=== PATIENT | female | born 1990 | race Caucasian/White ===

== ENCOUNTER → 2020-10-02 15:51 | Outpatient (BNVA) | payer OTHER, SELFPAY | PROVIDERS: Family Provider Internal Medicine; PCP Internal Medicine | DX: Z20.828 Contact with and (suspected) exposure to other viral communicable diseases (principal) | CPT/HCPCS: 87635 ==

== ENCOUNTER → 2020-10-11 17:25 | Outpatient (BNVA) | payer OTHER, SELFPAY | PROVIDERS: Family Provider Internal Medicine; PCP Internal Medicine; Visit Provider Family Medicine | DX: Z20.828 Contact with and (suspected) exposure to other viral communicable diseases (principal) | CPT/HCPCS: 87635 ==

== ENCOUNTER 2021-02-07 09:40 | Outpatient (CLI) | payer OTHER, SELFPAY ==
--- NOTE | 2021-02-07 09:45 | NM_ITS ---
WS: [id number] NUCLEAR MEDICINE HIDA SCAN WITH GALLBLADDER EJECTION FRACTION HISTORY: RUQ ABDOMINAL PAIN COMPARISON: None available. TECHNIQUE: The patient was intravenously injected with 7.7 mCi of TC99m Mebrofenin. Immediate imaging over the right upper quadrant was followed by 5 minute image and additional images for a total of 60 minutes. Normal uptake of radiotracer throughout the liver. Activity identified in the gallbladder at 15 minutes and well distended by 60 minutes. Activity in the proximal small bowel was seen by 30 minutes. Good washout of the radiotracer from the liver by 60 minutes. The patient then drank 8 ounces of Ensure Plus. Ejection fraction at 60 minutes was 83%. Normal GB ej ection fraction is 35-75%. Post fatty meal symptoms: None. NM/NM hepatobiliary w phar* [id number] IMPRESSION: 1. Normal HIDA scan. 2. Normal gallbladder ejection fraction.
== END 2021-02-07 09:41 | disposition home or self-care (01) ==
LOC: RAD 09:42
PROVIDERS: PCP Internal Medicine; Visit Provider Internal Medicine
DX: R10.11 Right upper quadrant pain (principal)
CPT/HCPCS: 78227; A9537

== ENCOUNTER → 2021-02-13 08:03 | Outpatient (BNVA) | payer OTHER, SELFPAY | PROVIDERS: PCP Internal Medicine; Visit Provider Surgery | DX: K80.20 Calculus of gallbladder without cholecystitis without obstruction (principal); Z11.52 Encounter for screening for COVID-19 | CPT/HCPCS: 87635 ==

== ENCOUNTER 2021-02-19 05:57 | Day surgery (SDC) | payer OTHER, SELFPAY ==
[2021-02-16 14:23] VITALS: BMI 38.2
[2021-02-19] VITALS (12 sets, daily range): BP systolic 130–161; BP diastolic 71–113; PULSE 70–92; RESP 17–20; TEMP 36.3–36.6; O2SAT 91–98
--- NOTE | 2021-02-19 06:29 | ANES.PREANE2 ---
Pre-Anesthetic Assessment Pre-Anesthetic Assessment: Height/Weight: Height 1.65 m Weight 104.326 kg Temp Pulse Resp BP Pulse Ox 97.3 F L 90 18 149/102 97 02/19/21 06:16 02/19/21 06:16 02/19/21 06:16 02/19/21 06:16 02/19/21 06:16 Preop Diagnosis: Cholelithiasis Proposed Procedure: Operation Date: 02/19/21 07:00 Proposed Procedures p Laparoscopic Cholecystectomy 54105 K80.20(Not Applicable) - Matthew Thomas MD Last intake: Intake Last Liquid Date 02/18/21 Last Liquid Time 23:00 Last Solid Date 02/18/21 Last Solid Time 21:00 Social: Social History: No alcohol and No tobacco Exam: Pre-Anes Outpt Exam: alert, oriented x 3, clear to auscultation bilaterally and regular rate & rhythm Airway: MP: 2 Dentition: Full Anesthetic Plan: ASA status: 2 Anesthesia: Anesthesia Evaluation and MAC Risk of > 500 ml blood loss (7ml/kg in children): Yes, adequate IV access and fluids planned PFSH Anesthesia PFSH: Medical History Anxiety GERD (gastroesophageal reflux disease) Data Anesthesia Cardiac Studies: No Data to Display
[2021-02-19] MEDS: midazolam 1 mg/mL INJ 2 mL 2 MG IVP (06:41)
[2021-02-19] MEDS: sodium chloride 0.9% 1,000 ML 30 ML IV (06:41)
--- NOTE | 2021-02-19 06:50 | W.PM.OPSUD ---
Surgery/Procedure H&P Update DATE OF PROCEDURE: February 19, 2021 DATE H&P PERFORMED: 02/09/21 H&P UPDATE INFORMATION: I have reviewed H&P completed within last 30 days, I have examined patient prior to procedure and No changes to prior documentation PREOP DIAGNOSIS: Cholelithiasis PLANNED PROCEDURE: Operation Date: 02/19/21 07:00 Proposed Procedures p Laparoscopic Cholecystectomy 23499 K80.20(Not Applicable) - Matthew Thomas MD
[2021-02-19 06:51] LABS: OR HCG Qualitative Urine Negative (Negative)
[2021-02-19] MEDS: fentaNYL 50 mcg/mL INJ 2mL IVP ×2 (07:57→08:02)
--- NOTE | 2021-02-19 08:07 | PM.OP ---
Operative Report Date of procedure: February 19, 2021 Pre-op Diagnosis: Cholelithiasis Post-op diagnosis: same Procedure Done: Laparoscopic cholecystectomy Specimens removed/disposition: Gallbladder Surgeon: Matthew Thomas Anesthesia: General Condition: stable Disposition: PACU Procedure: The patient was taken to the operating room and was intubated under general anesthesia. After the antibiotic had been administered, the abdomen was prepped and draped in a sterile manner. Using a #15 blade, a 1 centimeter infraumbilical curvilinear incision was made and using an open Robert technique the peritoneal cavity was entered. A 10 millimeter port was placed and 15 millimeters of pneumoperitoneum was created. A 10 millimeter, 30 degrees scope was then introduced. Three 5 millimeter ports were placed in the epigastric, midclavicular and the anterior axillary line two fingerbreadths below the costal margin on the right side under the direct visualization. Ratcheted forceps were introduced into the lateral most port and was used to retract the fundus of the gallbladder cephalad and using forceps the infundibulum of the gallbladder was retracted laterally. Using L-hook cautery the peritoneum overlying the Calot's triangle was opened medially and laterally until the cystic duct and the cystic artery were skeletonized. Dissection was carried along the body of the gallbladder and after ensuring critical view of safety, 4 clips applied on the cystic duct and 3 clips applied on the cystic artery and cut leaving, 3 clips on the remaining portion of the duct and 2 clips on the remaining portion of the artery. The rest of the gallbladder was dissected off the liver using L-hook cautery. There was no bleeding or bile leaking noted from the gallbladder fossa and the clips appeared to be in place. An EndoCatch bag was introduced to remove the gallbladder. All the ports were removed under direct visualization and there was no bleeding noted from the port sites. The fascia of the umbilicus was closed using [id number] 0 Vicryl sutures and the subcutaneous tissue was approximated using 3-0 Vicryl sutures. The skin at all four ports were closed using 4-0 Monocryl and Dermabond. A total of 10 millimeters of 0.5% Marcaine was infiltrated around the port sites. The patient was stable throughout the procedure.
[2021-02-19] MEDS: HYDROcodone-acetaminophen 5-325 mg Tablet 1 TAB PO (08:54)
== END 2021-02-19 10:10 | disposition home or self-care (01) ==
PROVIDERS: Anesthesiology Pain Medicine; PCP Internal Medicine; Visit Provider Surgery
PROC: 0FT44ZZ Resection of Gallbladder, Percutaneous Endoscopic Approach (ICD-10-PCS; CPT 47562; principal; 2021-02-19 07:00)
DX: K80.10 Calculus of gallbladder with chronic cholecystitis without obstruction (principal); F41.9 Anxiety disorder, unspecified; K21.9 Gastro-esophageal reflux disease without esophagitis
CPT/HCPCS: 47562; 81025; 84703; 88304; J0690; J2250; J2405; J2704; J2710; J3010; J3490; J7030

== ENCOUNTER 2021-11-01 09:37 | Outpatient (CLI) | payer BC, SELFPAY ==
[2021-11-01 12:21] LABS: Basophils % 0.3 %; Eosinophils # 0.1 10^3/uL (0.0-0.8); Eosinophils % 0.8 %; Hematocrit 37.4 % (37.0-47.0); Hemoglobin 12.4 g/dL (11.5-15.3); Lymphocytes # 3.3 10^3/uL (0.8-4.8); Lymphocytes % 32.7 %; Mean Corpuscular HGB Conc 33.2 g/dL (30.0-36.0); Mean Corpuscular Hemoglobin 28.4 pg (28.0-34.0); Mean Corpuscular Volume 85.6 fl (81-99); Mean Platelet Volume 9.5 fL (7.4-10.4); Monocytes # 0.6 10^3/uL (0.2-0.9); Monocytes % 5.5 %; Neutrophils # 6.03 10^3/uL (1.8-7.7); Neutrophils % 60.4 %; Nucleated Red Blood Cells % 0 %; Platelet Count 331 10^3/cmm (130-400); Red Blood Count 4.37 10^6/uL (4.1-5.3); Red Cell Distribution Width 13.2 % (12.1-15.1)
[2021-11-01 12:49] LABS: Erythrocyte Sedimentation Rate 66 mm/hr (0-15)
[2021-11-01 12:51] LABS: LAB Peripheral Smear Sent for Review
[2021-11-01 13:05] LABS: Alanine Aminotransferase 33 U/L (0-33); Albumin Level 4.4 g/dL (3.5-5.2); Alkaline Phosphatase 166 IU/L (35-105); Anion Gap 20.9 (5-19); Aspartate Amino Transferase 42 U/L (0-32); Blood Urea Nitrogen 8 mg/dL (6-20); Calcium 10.1 mg/dL (8.5-10.5); Carbon Dioxide 21 mmol/L (22-29); Chloride 101 mmol/L (98-107); Ferritin 21 ng/mL (15-150); Globulin 3.5 g/dL (1.3-4.6); Glomerular Filtration Rate 188.7 mL/min (90-130); Glucose 81 mg/dL (65-115); Osmolality Calculated 285 mOsm/kg (285-295); Potassium 3.9 mmol/L (3.5-5.1); Sodium 139 mmol/L (136-145); Thyroid Stimulating Hormone 2.68 uIU/mL (0.27-4.20); Total Bilirubin 0.2 mg/dL (0.15-1.2); Total Protein 7.9 g/dL (6.6-8.7); Vitamin B12 535 pg/mL (232-1245)
[2021-11-01 13:20] LABS: Folate Level 15.7 ng/mL (4.8-37.3)
[2021-11-01 13:27] LABS: Free T4 Free Thyroxine 1.12 ng/dL (0.82-1.77)
--- NOTE | 2021-11-01 15:39 | ONC CON_ITS ---
Dr. Rosario New Patient Note Patient: Charisse Garrett Unit #: [id number]: [id number] Dicatated By: Kiet Rosario M.D.Date of Visit: Nov 01, 2021 Onc MED New Patient/Consult Referring Physician: Dr. Kiet Vigil M.D. Chief Complaint: Leukocytosis/anemia. History of Present Illness: This is a 31-year-old woman with mild leukocytosis. She is also borderline anemic. She had seen Dr. Vigil in August for an annual checkup. She was not having any significant complaints at that time, but on her laboratory studies she was found to have leukocytosis with her white blood cell count mildly elevated at 12,200. The automated differential showed 61% granulocytes, 31% lymphocytes, and 6% monocytes. Her hemoglobin was borderline low at 12.0 g with hematocrit 35.8%. The red cell indices were normal. The platelet count was normal at 317,000. Her comprehensive metabolic profile showed normal renal function with BUN 18 and creatinine 0.5 mg/dL. The alkaline phosphatase was elevated at 186/140 U/L. The bilirubin and the other liver enzymes were normal. TSH was mildly elevated at 5.39 ???IU/mL. Her lipid profile showed elevated total cholesterol 252 mcg/dL with triglycerides elevated at 440.0 mg/dL. The HDL was 64.0 mg/dL and the calculated LDL was 100.0 mg/dL. Her history is significant in that she had been having intermittent episodes of right upper quadrant abdominal pain for several years. Her abdominal ultrasound on 08/14/2020 showed markedly enlarged liver measuring greater than 20 cm in length with severe hepatic steatosis and attenuation. There was evidence of cholelithiasis but without findings of acute cholecystitis. A HIDA scan on 02/07/2021 showed normal gallbladder ejection fraction. With her symptoms and with evidence of cholelithiasis, she underwent laparoscopic cholecystectomy on 02/19/2021. Since the cholecystectomy she has continued to have some mild discomfort in the right upper quadrant area, but overall her abdominal pain is much better. She feels good generally. She has pretty good energy and she has normal activity. Her appetite is good and her weight is stable. She has no fever, night sweats, or hot flashes. She has not had sore mouth or throat. She does not complain of cough, and she has not been having shortness of breath or chest pain. She currently has no GI or complaints. She has no significant joint or bone pain. She does not complain of headache or dizziness, and she has no focal neurologic symptoms. Past Medical History: Her medical history includes GERD and anxiety/depression. Past Surgical History: She underwent laparoscopic cholecystectomy on 02/19/2021. Medications: Acidophilus/Pectin 1 Capsule (of 100 mg) Oral daily, boost immunity Tablet daily, Collagen Ultra Capsule Oral daily, Omeprazole 1 Capsule (of 20 mg) Capsule Delayed Release Oral daily, Potassium Gluconate 1 Tablet (of 550 mg) Oral for 2 days, Sertraline HCl 1 Tablet (of 50 mg) Oral daily, TriNessa Lo Tablet Oral Allergies: No Known Allergies. Social History: Ms. Garrett is single. 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 She is a non-smoker. She has just very occasional alcohol use. Family History: Both parents are alive at age 66 and both have type 2 diabetes. Her maternal grandmother and grandfather also had diabetes. Her paternal grandmother of heart disease. A paternal uncle of cancer, type unknown to the patient. She has one sister who is in good health at age 30. Review Of Symptoms: Constitutional - She has pretty good energy and she has normal activity. Her appetite is good and her weight is stable. No fever, night sweats, or hot flashes. ECOG score is 0, Eyes - No change in vision, ENMT - No hearing loss or tinnitus. No sinus congestion/drainage. No mouth sores. No sore throat or difficulty swallowing, Hematologic/Lymphatic - No abnormal bruising or bleeding, Respiratory - No shortness of breath. No cough. No pleuritic pain or hemoptysis, Cardiovascular - No angina pain. No palpitations, Gastrointestinal - She still has occasional discomfort in the right upper quadrant area, though overall it is much better. No nausea or vomiting. No heartburn or acid reflux. No diarrhea or constipation. No blood in the stool or black stools, Genitourinary (F) - No dysuria or hematuria. No urinary frequency. No urgency or incontinence. Her menstrual periods are regular, Musculoskeletal - No joint or bone pain, Integumentary - No skin rash or other skin changes, Neurologic - No headache or dizziness. No numbness or tingling. No other focal neurologic symptoms, Psychiatric - She has anxiety and depression. No insomnia. Vital Signs: Performed on Nov 01, 2021 11:09: 0, 1, 39.44 (HIGH), 2.13 sq.m, 65 in, 98 %, 73 /min, 18 /min, 147/89 mm(hg) (HIGH), 96.9 F (LOW), and 237 lbs (HIGH). Physical Examination: Constitutional - She appears to be in good general health, Eyes - Sclerae nonicteric. Conjunctivae clear, ENMT - No lesions noted in the oral cavity, Neck - No mass or thyromegaly, Hematologic/Lymphatic - No cervical, clavicular, or axillary adenopathy, Respiratory - Lungs are clear with good air movement bilaterally, Cardiovascular - Heart rhythm is regular. There is no murmur, gallop, or rub noted, Abdomen - Soft and non-tender. Liver does not appear to be overtly enlarged. Spleen is not palpable. There is no abdominal mass or ascites noted and there is no inguinal adenopathy, Back/Spine - No spine or CVA tenderness noted, Extremities - No edema. Pedal pulses are palpable bilaterally, Integumentary - No rashes. No suspicious skin lesions noted, Neurologic - No focal neurologic deficits noted. Problem List: 1. Mild leukocytosis. 2. Mild anemia. 3. Hypertriglyceridemia. 4. Nonalcoholic steatohepatitis. 5. GERD. 6. Anxiety/depression. Problems Addressed with this Encounter and Plan: 1. Patient with mild leukocytosis. Etiology is uncertain, but it would most likely be reactive. She is also borderline anemic. She will have additional laboratory studies today to include a repeat CBC with sed rate, serum iron studies and ferritin, B12 level, folate level, and LDH level. I will review the blood smear. In addition, as a precaution, I will check a FISH study for BCR/abl. She will have further evaluation as indicated. 2. She has ultrasound evidence of hepatomegaly and severe hepatic steatosis. She also has hypertriglyceridemia, and there is associated elevation of the alkaline phosphatase. I will repeat her CMP today and she also will have further evaluation with abdominal CT scan. I will then discuss further management with Dr. Vigil. 3. Her TSH was mildly elevated and that will be repeated today along with a free T4 level. Results will be forwarded to Dr. Vigil for further management. Signed By: Kiet Rosario M.D. <<Signature on File>>
[2021-11-14 08:15] LABS: Miscellaneous Test See Scanned Lab Rpt
== END 2021-11-01 09:38 | disposition home or self-care (01) ==
LOC: ONCMED 09:43
PROVIDERS: PCP Internal Medicine; Visit Provider Internal Medicine Medical Oncology
DX: D72.829 Elevated white blood cell count, unspecified (principal); D64.9 Anemia, unspecified; K21.9 Gastro-esophageal reflux disease without esophagitis; F41.9 Anxiety disorder, unspecified; F32.A Depression, unspecified; E78.1 Pure hyperglyceridemia; K76.0 Fatty (change of) liver, not elsewhere classified; Z79.899 Other long term (current) drug therapy
CPT/HCPCS: 36415; 80053; 80500; 82607; 82728; 82746; 84439; 84443; 85025; 85651; 88184; 88185; 88374; 88377; 99204

== ENCOUNTER 2021-12-03 07:32 | Outpatient (CLI) | payer BC, SELFPAY ==
--- NOTE | 2021-12-03 08:26 | US_ITS ---
WS: [id number] Complete ABDOMINAL ULTRASOUND HISTORY: HEPATOMEGALY COMPARISON: 08/14/2020 Liver: 21.2 cm in length. Liver is moderately enlarged. Coarse echotexture increased echogenicity fro m hepatic steatosis. No mass. The entire liver is not well visualized due to attenuation. Portal Vein: Normal hepatopetal flow with monophasic waveform. Gallbladder: Status post cholecystectomy. Pancreas: Normal size and echogenicity. CBD: 0.4 cm. Right kidney: 11.5 cm x 5.8 cm x 5.4 cm. No mass, cortical thickening or hydronephrosis. Left kidney: 10.4 cm x 5.2 cm x 5.1 cm. No mass, cortical thickening or hydronephrosis. Spleen: Spleen is top normal size at 13.1 cm in length. No mass. Abdominal aorta and IVC are within normal limits. No ascites. US/US abdomen complete* [id number] IMPRESSION: 1. Prior cholecystectomy. 2. Moderate hepatomegaly and hepatic steatosis. The entire liver is not well v isualized due to the attenuation. 3. Spleen is top normal size at 13.1 cm in length.
== END 2021-12-03 07:33 | disposition home or self-care (01) ==
LOC: RAD 07:36
PROVIDERS: PCP Internal Medicine; Visit Provider Internal Medicine Medical Oncology
DX: R16.0 Hepatomegaly, not elsewhere classified (principal); Z90.49 Acquired absence of other specified parts of digestive tract; K76.0 Fatty (change of) liver, not elsewhere classified
CPT/HCPCS: 76700

== ENCOUNTER 2022-04-02 11:53 | Oncology outpatient (recurring) (ONCR) | payer BC, SELFPAY ==
[2022-04-02 12:29] LABS: Basophils % 0.4 %; Eosinophils # 0.1 10^3/uL (0.0-0.8); Eosinophils % 0.9 %; Hematocrit 35.7 % (37.0-47.0); Hemoglobin 11.9 g/dL (11.5-15.3); Lymphocytes # 2.7 10^3/uL (0.8-4.8); Lymphocytes % 27.8 %; Mean Corpuscular HGB Conc 33.3 g/dL (30.0-36.0); Mean Corpuscular Hemoglobin 29.4 pg (28.0-34.0); Mean Corpuscular Volume 88.1 fl (81-99); Mean Platelet Volume 9.6 fL (7.4-10.4); Monocytes # 0.6 10^3/uL (0.2-0.9); Neutrophils # 6.33 10^3/uL (1.8-7.7); Neutrophils % 64.6 %; Nucleated Red Blood Cells % 0 %; Platelet Count 296 10^3/cmm (130-400); Red Blood Count 4.05 10^6/uL (4.1-5.3); White Blood Count 9.8 10^3/uL (4.0-10.0)
[2022-04-02 12:59] LABS: Alanine Aminotransferase 23 U/L (0-33); Albumin Level 3.9 g/dL (3.5-5.2); Alkaline Phosphatase 205 IU/L (35-105); Anion Gap 16.8 (5-19); Aspartate Amino Transferase 17 U/L (0-32); Blood Urea Nitrogen 7 mg/dL (6-20); Calcium 9.1 mg/dL (8.5-10.5); Carbon Dioxide 22 mmol/L (22-29); Chloride 102 mmol/L (98-107); Globulin 3.6 g/dL (1.3-4.6); Glomerular Filtration Rate 188.7 mL/min (90-130); Glucose 105 mg/dL (65-115); Osmolality Calculated 282 mOsm/kg (285-295); Potassium 3.8 mmol/L (3.5-5.1); Sodium 137 mmol/L (136-145); Total Bilirubin 0.4 mg/dL (0.15-1.2); Total Protein 7.5 g/dL (6.6-8.7)
[2022-04-02 13:17] LABS: Ferritin 34 ng/mL (15-150); Iron 89 ug/dL (37-145); Percent Saturation 20.2 % (20-50); Total Iron Binding Capacity 439 mcg/dl; Unsaturated Iron Binding 350 ug/dL (112-347)
== END 2022-04-25 23:59 | disposition home or self-care (01) ==
PROVIDERS: PCP Internal Medicine; Referring Provider Internal Medicine; Visit Provider Internal Medicine Medical Oncology
DX: D72.829 Elevated white blood cell count, unspecified (principal); D50.9 Iron deficiency anemia, unspecified; Z79.899 Other long term (current) drug therapy
CPT/HCPCS: 80053; 82728; 83540; 83550; 85025

== ENCOUNTER 2022-11-29 09:33 | Outpatient (CLI) | payer BC, SELFPAY ==
--- NOTE | 2022-11-29 10:27 | US_ITS ---
WS: [id number] TRANSVAGINAL PELVIC ULTRASOUND HISTORY: SUPRAPUBIC PAIN COMPARISON: None available. Uterus: 7.4 cm x 4.0 cm x 3.1 cm. Normal size anteverted uterus. No fibroid or mass. Endometrium: 0.2 cm. Normal thin endometrium. No mass. Right ovary: 3.0 cm x 2.1 cm x 3.2 cm. Normal size and vascularity, no cystic or solid masses. Left ovary: 3.4 cm x 3.0 cm x 3.4 cm. Normal size and vascularity, no cystic or solid masses. No free fluid. US/US transvaginal [id number] IMPRESSION: Normal transvaginal pelvic ultrasound.
== END 2022-11-29 09:34 | disposition home or self-care (01) ==
PROVIDERS: PCP Internal Medicine; Visit Provider Internal Medicine
DX: R10.2 Pelvic and perineal pain (principal)
CPT/HCPCS: 76830

== ENCOUNTER → 2024-10-28 17:54 | Outpatient (BNVA) | payer BC, SELFPAY | PROVIDERS: PCP Internal Medicine; Visit Provider Nurse Practitioner Family | DX: N39.0 Urinary tract infection, site not specified (principal) | CPT/HCPCS: 81000 ==